=== PATIENT | male | born 1965 | race American Indian/Alaskan Native ===

== ENCOUNTER 2018-07-15 11:38 | Emergency (ER) | payer MEDICAID ==
[2018-07-15 11:43] VITALS: BP 160/102
--- NOTE | 2018-07-15 12:28 | Emergency Department Report ---
ED General Adult HPI - General Chief complaint: High BP Stated complaint: BLOOD PRESSURE CHECK Time Seen by Provider: 07/15/18 12:15 Source: patient Mode of arrival: Ambulatory Limitations: No Limitations - History of Present Illness Initial comments: Mr. Hare is a very pleasant 52-year-old male comes to the ER for blood pressure check. Last month he attempted to donate plasma, at that time, his blood pressure was elevated. Consequently he was unable to donate plasma. He kindly requestsblood pressure medicine today. He is currently symptom-free. However he did tell triage nurse that he felt as if he was going to pass out. He denies lightheadedness. He denies dizziness. He denies chest pain. Denies headache. Denies visual changes. He denies syncope. He is concerned about elevated blood pressure. His is currently on dialysis for end-stage renal disease. -: Gradual, month(s) (1) Improves with: none Worsens with: none Associated Symptoms: denies other symptoms - Related Data Allergies Allergy/AdvReac Type Severity Reaction Status Date / Time No Known Allergies Allergy Verified 07/15/18 11:44 ED Review of Systems ROS: Stated complaint: BLOOD PRESSURE CHECK Other details as noted in HPI Comment: All other systems reviewed and negative Constitutional: denies: fever, malaise Respiratory: denies: cough Cardiovascular: denies: chest pain Gastrointestinal: denies: abdominal pain ED Past Medical Hx - Past Medical History Previous Medical History?: No - Surgical History Past Surgical History?: No - Family History Family history: hypertension - Social History Smoking Status: Current Every Day Smoker Substance Use Type: Marijuana Other Social History: Currently disabled due to back injury, worked for [employer] for 25 years ED Physical Exam - General Limitations: No Limitations General appearance: alert, in no apparent distress - Head Head exam: Present: atraumatic, normocephalic - Eye Eye exam: Present: normal appearance - ENT ENT exam: Present: mucous membranes moist - Neck Neck exam: Present: normal inspection. Absent: tenderness, meningismus - Respiratory Respiratory exam: Present: normal lung sounds bilaterally. Absent: respiratory distress, wheezes, rales, rhonchi - Cardiovascular Cardiovascular Exam: Present: regular rate, normal rhythm, normal heart sounds. Absent: systolic murmur, diastolic murmur, rubs, gallop - GI/Abdominal GI/Abdominal exam: Present: soft, normal bowel sounds. Absent: distended, tenderness, guarding, rebound - Rectal Rectal exam: Present: deferred - Extremities Exam Extremities exam: Present: normal inspection - Back Exam Back exam: Present: normal inspection - Neurological Exam Neurological exam: Present: alert, oriented X3 - Psychiatric Psychiatric exam: Present: normal affect, normal mood - Skin Skin exam: Present: warm, dry, intact, normal color. Absent: rash ED Course Vital Signs 07/15/18 11:40 Temperature 98.2 F Pulse Rate 62 Respiratory 20 Rate Blood Pressure 160/102 O2 Sat by Pulse 100 Oximetry ED Medical Decision Making - Medical Decision Making Mr. Hare comes to the ER for blood pressure management. He currently is symptom-free. I strongly recommended establishing care with primary care physician. I have referred Mr. Hare to several clinics and outpatient practitioners. He does have good health insurance. I explained that it would be dangerous to take medication without appropriate supervision. I did explain that he will benefit from preventive primary care. Has not seen a physician in quite some time. Critical care attestation.: If time is entered above; I have spent that time in minutes in the direct care of this critically ill patient, excluding procedure time. ED Disposition Clinical Impression: Elevated blood pressure reading Disposition: DC-01 TO HOME OR SELFCARE Is pt being admited?: No Does the pt Need Aspirin: No Condition: Stable Instructions: Hypertension (ED) Referrals: [facility] [Outside] - 3-5 Days MACI ROA MD [Staff Physician] - 3-5 Days MACI KAYE MD [Staff Physician] - 3-5 Days
[2018-07-17] MEDS ORDERED: CALCIUM CHLORIDE IV ONE (03:38)
[2018-07-18] MEDS ORDERED: KEPPRA 1,000 MG/NS 0.75% 100ML 0 MG/0 ML BAG IV ONE (07:09)
== END 2018-07-15 12:32 | disposition home or self-care (01) ==
LOC: ED 11:38
DX: R03.0 Elevated blood-pressure reading, without diagnosis of hypertension (principal); F17.200 Nicotine dependence, unspecified, uncomplicated; F12.10 Cannabis abuse, uncomplicated
CPT/HCPCS: 99282

== ENCOUNTER 2018-07-25 10:51 | Emergency (ER) | payer MEDICAID | END 2018-07-25 14:43 | disposition left against medical advice (07) | LOC: ED 10:51 ==

== ENCOUNTER 2018-08-03 14:26 | Emergency (ER) | payer MEDICAID ==
[2018-08-03 15:13] VITALS: BP 136/61
[2018-08-04] MEDS ORDERED: TYLENOL ONE (00:59)
== END 2018-08-03 14:49 ==
LOC: ED 14:26
DX: R03.0 Elevated blood-pressure reading, without diagnosis of hypertension (principal); Z53.21 Procedure and treatment not carried out due to patient leaving prior to being seen by health care provider

== ENCOUNTER 2018-08-08 11:24 | Emergency (ER) | payer MEDICAID | END 2018-08-08 11:28 | disposition left against medical advice (07) | LOC: ED 11:24 ==